=== PATIENT | female | born 1970 | race Caucasian/White ===

== ENCOUNTER → 2022-05-08 | Day surgery (SDC) | payer MEDICAID ==
[~2022-05-08] VITALS: Ht 153.7 cm; Wt 56.7 kg
[~2022-05-08] MED LIST: ATROPINE SULFATE 1MG/10ML SYR IV PRN; CALC-1249 PO; CEFAZOLIN SODIUM 1000MG/VIAL ONE; CHOL12502 PO; DEXAMETHASONE 4MG/ML 1ML VIAL ONE; FENTANYL CITRATE/PF 50MCG/ML 2ML VIAL IV PRN; FENTANYL CITRATE/PF 50MCG/ML 2ML VIAL ONE; HYDROMORPHONE HCL/PF 2MG/ML CPJ IV PRN; LACTATED RINGERS 1,000 ML IV SCH; LIDOCAINE HCL/EPINEPHRINE 1%-EPI 1:100,000 30 ML VIAL INFIL ONE; MIDAZOLAM HCL 2 MG/2 ML VIAL ONE; ONDANSETRON HCL 4MG/2ML INJ ONE; PROPOFOL 200MG/20ML VIAL IV ONE; SUCCINYLCHOLINE CHLORIDE 200MG/10ML IV ONE
[2022-05-08 09:14] LABS: CLARITY URINE CLEAR (CLEAR); COLOR URINE YELLOW (YELLOW); KETONES URINE 3+ (NEGATIVE); LEUKOCYTE ESTERASE URINE NEGATIVE (NEGATIVE); NITRITE URINE NEGATIVE (NEGATIVE); OCCULT BLOOD URINE 2+ (NEGATIVE); PROTEIN URINE NEGATIVE (NEGATIVE); SPECIFIC GRAVITY URINE 1.021 (1.005-1.030); UROBILINOGEN URINE 0.2 E.U./dL (0.2-1.0)
[2022-05-08 15:01] VITALS: BP 114/67
[2022-05-08 17:33] LABS: HEMATOCRIT. 40.4 % (36.0-48.0); HEMOGLOBIN. 13.5 g/dL (12.0-16.0); MEAN CORPUSCULAR HEMOGLOBIN 31.3 pg (28.0-32.0); MEAN CORPUSCULAR VOLUME 93.7 fL (81.0-99.0); MEAN PLATELET VOLUME 8.4 fl (7.4-10.4); PLATELET 228 x1000/uL (130-400); RED BLOOD CELL COUNT 4.31 mill/uL (4.2-5.4); RED CELL DISTRIBUTION WIDTH 12.6 % (11.6-14.6)
[2022-05-08 17:40] LABS: CHLORIDE 104 mEq/L (98-107)
[2022-05-08 18:32] LABS: PLATELET ESTIMATE NORMAL
== END | disposition home or self-care (01) ==
LOC: OR 08:32
PROVIDERS: ATTEND Surgery
DX: C43.51 Malignant melanoma of anal skin (principal); Z79.899 Other long term (current) drug therapy; Z98.890 Other specified postprocedural states; Z20.822 Contact with and (suspected) exposure to COVID-19
CPT/HCPCS: 36415; 45171; 80048; 81003; 82962; 83735; 85025; 87426; C9803; J0330; J0690; J1100; J1170; J2250; J2405; J2704; J3010; 88304; 88361